=== PATIENT | female | born 1955 | race Caucasian/White ===

== ENCOUNTER 2017-01-28 13:17 | Emergency (ER) | payer BC ==
[2017-01-28 14:00] VITALS: BP 132/80
--- NOTE | 2017-01-28 14:42 | UC ---
Throat Pain/Nasal Home HPI - HPI Summary HPI Summary: Patient presents with CC of sore throat, post nasal drip and feeling of an enlarged uvula x 2 days. Symptoms worsened today. She states she feels as though she was breathing heavily in her sleep which may have caused her uvula to swell or become very dry in her throat. She has high BP and takes medications, although she denies taking them for several days d/t being out of town. Denies cough. She feels post nasal drip, but denies sinus pressure. Denies ear pain. Denies allergies. She has not taken anything for the symptoms. - History of Current Complaint Chief Complaint: UCRespiratory Stated Complaint: SINUS SORE THROAT Time Seen by Provider: 01/28/17 13:38 Hx Obtained From: Patient Hx Last Menstrual Period: 2010 or longer ?: No Onset/Duration: Sudden Onset Severity: Mild Pain Intensity: 2 Pain Scale Used: 0-10 Numeric Associated Signs & Symptoms: Positive: Other - feeling of dry throat, post nasal drip and enlarged uvula - Epiglottits Risk Factors Epiglottis Risk Factors: Negative - Allergies/Home Medications Allergies/Adverse Reactions: Allergies Allergy/AdvReac Type Severity Reaction Status Date / Time Morphine AdvReac Severe unable to Verified 01/28/17 13:52 awake, vomiting Sulfa Drugs AdvReac Severe nausea/ Verified 01/28/17 13:52 diarrhea PMH/Surg Hx/FS Hx/Imm Hx Previously Healthy: Yes - Surgical History Surgical History: Yes Surgery Procedure, Year, and Place: pilonidal cyst, LEFT KNEE SURGERY, RIGHT ROTATOR CUFF SURGERY, ANAL FISSURE REPAIR ,GALL BLADDER REMOVAL, tonsils and adenoids - Family History Known Family History: Positive: Unknown - adopted - Social History Occupation: Employed Full-time Lives: With Family Alcohol Use: Rare Substance Use Type: None Smoking Status (MU): Never Smoked Tobacco Review of Systems Constitutional: Negative Skin: Negative Eyes: Negative ENT: Sore Throat, Other - post nasal discharge Cardiovascular: Negative Motor: Negative Neurovascular: Negative Neurological: Negative Psychological: Negative All Other Systems Reviewed And Are Negative: Yes Physical Exam Triage Information Reviewed: Yes Appearance: Well-Appearing, Well-Nourished Vital Signs: Initial Vital Signs Temp 98.2 F 01/28/17 13:41 Pulse 61 01/28/17 13:41 Resp 16 01/28/17 13:41 BP 132/80 01/28/17 13:41 Pulse Ox 100 01/28/17 13:41 Vital Signs Reviewed: Yes Eye Exam: Normal Eyes: Positive: Conjunctiva Clear ENT: Positive: Pharyngeal erythema, Nasal drainage, TMs normal, Other: - post nasal drip Dental Exam: Normal Neck exam: Normal Neck: Positive: Supple, Nontender, No Lymphadenopathy Respiratory Exam: Normal Respiratory: Positive: Chest non-tender, Lungs clear Cardiovascular Exam: Normal Cardiovascular: Positive: RRR Musculoskeletal Exam: Normal Musculoskeletal: Positive: Strength Intact Neurological Exam: Normal Neurological: Positive: Alert Psychological: Positive: Normal Response To Family Skin Exam: Normal Throat Pain/Nasal Course/Dx - Course Course Of Treatment: Discussed treatment options. Discussed possibilities of dry throat, and no signs of bacterial illness. Patient agrees and is OK with discharge. She is to return if symptoms become worse. - Differential Dx/Diagnosis Differential Diagnosis/HQI/PQRI: Otitis Media, Pharyngitis, Sinusitis, URI Provider Diagnoses: Throat pain; post nasal drip Discharge - Discharge Plan Condition: Stable Disposition: HOME Patient Education Materials: Viral Syndrome (ED) Referrals: Jeni Fonseca MD [Primary Care Provider] - Additional Instructions: Follow up with PCP or return to if symptoms persist or fail to improve. Humidifier in the home will help with dry throat. Tylenol for discomfort. IF this is a viral syndrome, symptoms should resolve in 1-3 weeks and treat symptomatically There are no signs of allergies, or bacterial illness at this point. Rest and fluids will help with dry mouth and build up your immune system. If you develop a cough, which is common after experiencing a dry throat, OTC robitussin and cough drops for relief. If symptoms are too severe, return to for a re-check.
== END 2017-01-28 14:19 | disposition home or self-care (01) ==
LOC: UCCORT 13:17
DX: J02.9 Acute pharyngitis, unspecified (principal); R09.82 Postnasal drip
CPT/HCPCS: 99211; G0463

== ENCOUNTER 2017-06-29 18:59 | Emergency (ER) | payer BC ==
[2017-06-29 20:13] VITALS: BP 122/69
[2017-06-29] MEDS ORDERED: Acetaminophen TAB* 325 MG PO ONE (20:15)
--- NOTE | 2017-06-29 20:33 | UC ---
Respiratory Complaint HPI - HPI Summary HPI Summary: 3 day h/o URI symptoms with coughing. Hoarse voice. - History of Current Complaint Chief Complaint: UCRespiratory Stated Complaint: COUGH CONGESTION NAUSEA CHILLS HEADACHE Time Seen by Provider: 06/29/17 20:24 Hx Obtained From: Patient Hx Last Menstrual Period: n/a Onset/Duration: Sudden Onset, Lasting Days - 3, Worse Since - last night. Timing: Constant Severity Initially: Mild Severity Currently: Moderate Character: Cough: Nonproductive - mostly Aggravating Factors: Recumbent Position Alleviating Factors: Nothing Associated Signs And Symptoms: Positive: Fever, Chills, Wheezing, URI, Hoarseness. Negative: Nasal Congestion, Sinus Discomfort - Allergies/Home Medications Allergies/Adverse Reactions: Allergies Allergy/AdvReac Type Severity Reaction Status Date / Time Morphine AdvReac Severe unable to Verified 06/29/17 20:13 awake, vomiting Sulfa Drugs AdvReac Severe nausea/ Verified 06/29/17 20:13 diarrhea Home Medications: Home Medications Metoprolol Tartrate TAB* [Lopressor TAB*] 25 mg PO DAILY 06/29/17 [History Confirmed 06/29/17] metFORMIN* [Glucophage 500 MG TAB *] 500 mg PO BID 06/29/17 [History Confirmed 06/29/17] PMH/Surg Hx/FS Hx/Imm Hx Endocrine History: Diabetes Cardiovascular History: Hypertension Respiratory History: Asthma - Surgical History Surgical History: Yes Surgery Procedure, Year, and Place: pilonidal cyst, LEFT KNEE SURGERY, RIGHT ROTATOR CUFF SURGERY, ANAL FISSURE REPAIR ,GALL BLADDER REMOVAL, tonsils and adenoids - Family History Known Family History: Positive: Unknown - adopted - Social History Occupation: Employed Full-time Lives: Alone Alcohol Use: Rare Substance Use Type: None Smoking Status (MU): Never Smoked Tobacco Have You Smoked in the Last Year: No Review of Systems Constitutional: Fever ENT: Sore Throat Respiratory: Shortness Of Breath, Cough Is Patient Immunocompromised?: No All Other Systems Reviewed And Are Negative: Yes Physical Exam Triage Information Reviewed: Yes Appearance: No Pain Distress, Ill-Appearing, Obese Vital Signs: Initial Vital Signs Temp 100.6 F 06/29/17 20:08 Pulse 84 06/29/17 20:08 Resp 18 06/29/17 20:08 BP 122/69 06/29/17 20:08 Pulse Ox 98 06/29/17 20:08 Vital Signs Reviewed: Yes Eyes: Positive: Conjunctiva Clear ENT: Positive: Pharynx normal, Nasal congestion, TMs normal Neck exam: Normal Respiratory: Positive: Wheezing - Mild expiratory wheezes Cardiovascular Exam: Normal Musculoskeletal Exam: Normal Neurological Exam: Normal Psychological Exam: Normal Skin Exam: Normal UC Diagnostic Evaluation - Laboratory O2 Sat by Pulse Oximetry: 98 Respiratory Course/Dx - Differential Dx/Diagnosis Differential Diagnosis/HQI/PQRI: Asthma, Lower Resp Infection, Sinusitis Provider Diagnoses: Acute URI. Asthma with acute exacerbation. Discharge - Discharge Plan Condition: Stable Disposition: HOME Prescriptions: Albuterol HFA INHALER* [Ventolin HFA Inhaler*] 2 puff INH Q4H PRN #1 mdi PRN Reason: Wheezing predniSONE TAB* [Deltasone TAB*] 20 mg PO DAILY #18 tab Patient Education Materials: Upper Respiratory Infection (ED), Wheezing (ED), Prednisone (By mouth) Referrals: Jeni Fonseca MD [Primary Care Provider] -
[2017-06-29] MEDS ORDERED: predniSONE TAB* 20 MG PO ONE (20:34)
[2017-06-29] MEDS ORDERED: Albuterol HFA INHALER* 8 gm MDI INH ONE (20:34)
== END 2017-06-29 20:47 | disposition home or self-care (01) ==
LOC: UCCORT 18:59
DX: J06.9 Acute upper respiratory infection, unspecified (principal); J45.901 Unspecified asthma with (acute) exacerbation; E11.9 Type 2 diabetes mellitus without complications; Z79.84 Long term (current) use of oral hypoglycemic drugs; I10 Essential (primary) hypertension; E66.9 Obesity, unspecified; Z88.5 Allergy status to narcotic agent; Z88.2 Allergy status to sulfonamides
CPT/HCPCS: 99213; A9270-GY; G0463; J7512